=== PATIENT | female | born 1970 | race Caucasian/White ===

== ENCOUNTER → 2019-03-08 07:22 | Outpatient (CLI) | payer SELFPAY ==
--- NOTE | 2019-03-08 07:25 | CT_ITS ---
HISTORY: Left flank soft tissue mass. Previous surgery-APPY, L OOPHERECTOMY, HYSTERECTOMY, and BENIGN TUMOR REMOVED LEFT FLANK X5 YRS AGO EXAMINATION: CT Abdomen And Pelvis W/O Contrast TECHNIQUE: Helically acquired images were obtained of the abdomen and pelvis without oral or IV contrast as per renal stone protocol. A radiation dose optimization technique was used for this scan. IV Contrast dosage and agent: None. Oral contrast: Yes COMPARISON: 03/11/2016 FINDINGS: Lower thorax: Clear. No pleural effusion or pericardial effusion. No radiopaque gallstones and no biliary dilatation. The liver is normal in size. Normal spleen and pancreas. Both kidneys are normal in position. No renal or ureteral calculi and no hydronephrosis or hydroureter. Left adrenal stable low-density nodule measuring 2.5 cm. Normal right adrenal. Abdominal aorta is normal in caliber. No ascites or retroperitoneal lymph enlargement. GI tract: No obstruction. Prominent constipation. Pelvis: Retroverted uterus which is normal in size. Normal urinary bladder. No free fluid or lymph enlargement. Left flank: The posterolateral left flank shows an intramuscular oval-shaped fatty lesion which is increased in size and currently measures approximately 8.7 x 4.4 x 8.6 cm as compared to 6.8 x 1.8 x 6.2 cm previously. The left flank mass does not suggest a lateral or lumbar hernia. Bones: No acute osseous abnormality. CT/Abdomen/Pelvis without Cont IMPRESSION: 1. Posterolateral left flank intramuscular fatty lesion which is increased in size and currently measures 8.6 cm in maximal AP dimension. Details above. 2. Prominent constipation. No acute abdominal disease identified. 3. Left adrenal stable 2.5 cm low-density lesion. Individualized dose optimization techniques were used for this CT. at 0830 Reported and signed by: Antwan Azul MD Electronically Signed: Antwan Azul, at 8:29 EDT Tel , Service support ,
== END ==
PROVIDERS: Family Provider Internal Medicine; PCP Internal Medicine; Referring Provider Surgery; Visit Provider Surgery
DX: D49.2 Neoplasm of unspecified behavior of bone, soft tissue, and skin (principal)
CPT/HCPCS: 74176; Q9967

== ENCOUNTER → 2020-10-04 12:29 | Outpatient (CLI) | payer SELFPAY ==
[2019-02-22 15:53] VITALS: BMI 21.6
--- NOTE | 2020-10-04 12:34 | BI_ITS ---
MAMMOGRAPHY - BILATERAL SCREENING REASON FOR EXAM: Female, 49 years old. Routine annual screening examination. PERTINENT HISTORY: Non-contributory. TECHNIQUE: Digital bilateral breast matilda (3D mammographic acquisition) in the CC and MLO projections. 2-D mediolateral oblique (MLO) and craniocaudad (CC) views of both breasts were obtained. CAD: Full Field Digital Mammography with Computer Added Detection was performed. COMPARISON: None. Baseline examination. FINDINGS: Breast Composition: The breasts are extremely dense, which lowers the sensitivity of mammography. There are no dominant masses or suspicious calcifications. No other significant abnormalities are identified. BI/SCRN MAMM (CAD)W/MATILDA BILAT IMPRESSION: Negative screening mammogram. Yearly followup mammogram recommended. (A) ASSESSMENT CATEGORY: BIRADS Category 1: Negative. A letter regarding these results will be sent to the patient by the facility within 30 days. Approximately 10% of breast cancers are not detected by mammography. A normal mammogram should not delay biopsy of a clinically suspicious abnormality. [id number] Electronically Signed: Vazquez Flores MD at 14:03 EDT , Service support ,
== END ==
PROVIDERS: PCP Internal Medicine; Referring Provider Internal Medicine; Visit Provider Internal Medicine
DX: Z12.31 Encounter for screening mammogram for malignant neoplasm of breast (principal)
CPT/HCPCS: 77063; 77067

== ENCOUNTER → 2024-09-02 | Outpatient (CLI) | payer SELFPAY ==
--- NOTE | 2024-09-02 15:23 | BI_ITS ---
EXAM: SCRN MAMM (CAD)W/MATILDA BILAT 09/02/2024 CLINICAL HISTORY: F, Age 53 y/o , SCREENING TECHNIQUE: Bilateral screening digital breast tomosynthesis with 2D and 3D images. Computer aided detection. COMPARISON: Prior exam(s) dated 10/04/2020. FINDINGS: TISSUE DENSITY: The breast tissue is heterogenously dense, which may obscure small masses. The mammogram demonstrates that the patient has dense breasts. Supplemental screening with whole breast ultrasound or MRI may be considered for further evaluation. Bilateral Breast Mammographic Findings: Left breast: There is a mass in the upper inner left breast at middle depth. Right breast: There is an asymmetry with possible architectural distortion in the lateral right breast at middle depth visualized on the CC view. BI/SCRN MAMM (CAD)W/MATILDA BILAT IMPRESSION: 1. Mass in the upper inner left breast at middle depth requires further evalua tion. Recommend diagnostic ultrasound of the left breast. 2. Asymmetry with possible distortion in the lateral right breast at middle de pth visualized on the CC view requires further evaluation. Recommend diagnostic mammogram of the right breast and ultrasound if indicated. Right Breast: BIRADS 0 Incomplete: Need additional imaging evaluation and/or pr ior mammograms for comparison.. Left Breast: BIRADS 0 Incomplete: Need additional imaging evaluation and/or pr ior mammograms for comparison.. OVERALL FINAL ASSESSMENT: BIRADS 0 Incomplete: Need additional imaging evaluati on and/or prior mammograms for comparison.. RECOMMENDATION: Recommendation: Additional projections. A letter with findings and recommendations will be mailed to the patient. Reading Location: [id number]
== END | disposition home or self-care (01) ==
PROVIDERS: PCP Internal Medicine
DX: Z12.31 Encounter for screening mammogram for malignant neoplasm of breast (principal)
CPT/HCPCS: 77063; 77067

== ENCOUNTER 2024-09-21 08:51 | Outpatient (CLI) | payer SELFPAY ==
--- NOTE | 2024-09-21 09:28 | US_ITS ---
PROCEDURE: BREAST LIMITED UNILATERAL 09/21/2024 REASON FOR EXAM: ABN MAMM TECHNIQUE: Targeted left breast ultrasound. COMPARISON: Comparison is made with prior mammogram done earlier in the day. FINDINGS: Left breast ultrasound was targeted to the upper inner quadrant. The breast tissue appears sonographically normal. No cyst, solid mass, or suspicious shadowing. US/Breast Limited Unilateral IMPRESSION: Impression: No sonographic abnormality is seen. Birads: BI-RADS 1: NEGATIVE. RECOMMEND ANNUAL MAMMOGRAPHIC SCREENING. Reading Location: [place] [id number]
--- NOTE | 2024-09-21 09:28 | BI_ITS ---
EXAM: DIAG MAMM W/CAD, BILAT 09/21/2024 CLINICAL HISTORY: F, Age 53 y/o , ABN MAMM TECHNIQUE: Bilateral Diagnostic digital breast tomosynthesis with 2D and 3D images. Compression spot views were obtained as well. Computer aided detection. COMPARISON: Prior exam(s) dated September 02, 2024.. FINDINGS: TISSUE DENSITY: The breast tissue is extremely dense which lowers the sensitivity of mammography. Bilateral Breast Mammographic Findings: Compression spot views of the right breast were obtained. Dense fibroglandular tissue. No mass lesion is seen. BI/DIAG MAMM W/CAD, BILAT IMPRESSION: OVERALL FINAL ASSESSMENT: BIRADS 1 NEGATIVE. RECOMMENDATION: Routine annual follow-up in 1 Year A letter with findings and recommendations will be mailed to the patient. Reading Location: [place] [id number]
== END 2024-09-21 23:59 | disposition home or self-care (01) ==
PROVIDERS: PCP Internal Medicine
DX: N63.10 Unspecified lump in the right breast, unspecified quadrant (principal); N63.20 Unspecified lump in the left breast, unspecified quadrant; R92.343 Mammographic extreme density, bilateral breasts
CPT/HCPCS: 76642; 77062; 77066; G0279